=== PATIENT | male | born 1980 | race Caucasian/White ===

== ENCOUNTER → 2017-02-18 | Outpatient (CLI) | payer OTHER ==
--- NOTE | 2017-02-19 12:28 | ECHOF ---
Referral Reason:R07.89 Atypical chest pain MEASUREMENTS -------- HEIGHT: 198.1 cm WEIGHT: 93.0 kg BP: 144/92 RVIDd: 3.4 cm (< 3.3) IVSd: 1.1 cm (0.6 - 1.1) LVIDd: 5.6 cm (3.9 - 5.3) LVPWd: 1.3 cm (0.6 - 1.1) IVSs: 1.5 cm LVIDs: 4.0 cm LVPWs: 1.5 cm LAESV Index (A-L): 17.89 ml/m Ao Diam: 3.6 cm (2.0 - 3.7) AV Cusp: 2.6 cm (1.5 - 2.6) LA Diam: 3.0 cm (2.7 - 3.8) MV EXCURSION: 22.126 mm (> 18.000) MV EF SLOPE: 133 mm/s (70 - 150) EPSS: 0.8 cm MV E Jaspreet: 0.81 m/s MV DecT: 307 ms MV A Jaspreet: 0.55 m/s MV E/A Ratio: 1.47 RAP: 5.00 mmHg RVSP: 10.25 mmHg FINDINGS -------- Sinus rhythm. This was a technically good study. The left ventricular size is normal. There is borderline concentric left ventricular hypertrophy. Overall left ventricular systolic function is normal with, an EF between 55 - 60 %. The right ventricle is normal in size and function. Normal LA size by volume 22+/-6 ml/m2. The right atrium is normal in size. The aortic valve is trileaflet, and appears structurally normal. No aortic stenosis or regurgitation. The mitral valve leaflets are mildly thickened. There is trace mitral regurgitation. Redundant chordae. Trace tricuspid regurgitation present. Right ventricular systolic pressure is normal at < 35 mmHg. There is no evidence of pulmonary hypertension. The pulmonic valve is normal. The aortic root size is normal. Normal inferior vena cava with normal inspiratory collapse consistent with estimated right atrial pressure of 5 mmHg. The pericardium is normal. There is no pericardial effusion. CONCLUSIONS -------- 1. Sinus rhythm. 2. Redundant chordae. 3. Trace tricuspid regurgitation present. 4. Right ventricular systolic pressure is normal at < 35 mmHg. 5. There is no evidence of pulmonary hypertension. 6. The aortic root size is normal. 7. There is no pericardial effusion. 8. This was a technically good study. 9. The left ventricular size is normal. 10. There is borderline concentric left ventricular hypertrophy. 11. Overall left ventricular systolic function is normal with, an EF between 55 - 60 %. 12. Normal LA size by volume 22+/-6 ml/m2. 13. The aortic valve is trileaflet, and appears structurally normal. No aortic stenosis or regurgitation. 14. The mitral valve leaflets are mildly thickened. 15. There is trace mitral regurgitation. [employer] INSPECTOR: Rayshawn Saenz RDCS
== END | disposition home or self-care (01) ==
LOC: RADECHMAIN 16:16
PROVIDERS: ATTEND Family Medicine
DX: I08.1 Rheumatic disorders of both mitral and tricuspid valves (principal)
CPT/HCPCS: 93306